=== PATIENT | male | born 1970 | race Caucasian/White ===

== ENCOUNTER → 2020-03-30 | Outpatient (REF) | payer OTHER, BC ==
[2020-03-30 17:07] LABS: MALB URINE SIEMENS 17.8 MG/L; MAU/CREAT RATIO 24.3 MCG/MG (0.0-30.0)
== END ==
LOC: M LAB REF 15:39
PROVIDERS: ATTEND Physician Assistant
DX: E11.65 Type 2 diabetes mellitus with hyperglycemia (principal)

== ENCOUNTER → 2020-04-30 | Outpatient (REF) | payer OTHER ==
[2020-04-30 18:39] LABS: ALBUMIN 4.4 GM/DL (3.2-5.2); ALT/SGPT 36 U/L (12-78); BILIRUBIN,TOTAL 1.3 MG/DL (0.2-1.0); BLOOD UREA NITROGEN 23 MG/DL (7-18); CALCIUM LEVEL 9.5 MG/DL (8.5-10.1); CARBON DIOXIDE LEVEL 31 MEQ/L (21-32); CHLORIDE LEVEL 101 MEQ/L (98-107); CREATININE FOR GFR 0.84 MG/DL (0.70-1.30); GLOMERULAR FILTRATION RATE > 60.0 (>56); GLUCOSE, FASTING 148 MG/DL (70-100); POTASSIUM SERUM 4.6 MEQ/L (3.5-5.1); SODIUM LEVEL 136 MEQ/L (136-145); TOTAL PROTEIN 7.7 GM/DL (6.4-8.2)
== END ==
LOC: M LAB REF 15:58
PROVIDERS: ATTEND Physician Assistant
DX: R17 Unspecified jaundice (principal)

== ENCOUNTER → 2020-07-03 | Outpatient (REF) | payer OTHER ==
[2020-07-03 13:26] LABS: ALBUMIN 4.4 GM/DL (3.2-5.2); ALT/SGPT 29 U/L (12-78); BILIRUBIN,TOTAL 1.2 MG/DL (0.2-1.0); BLOOD UREA NITROGEN 19 MG/DL (7-18); CALCIUM LEVEL 9.3 MG/DL (8.5-10.1); CARBON DIOXIDE LEVEL 32 MEQ/L (21-32); CHLORIDE LEVEL 105 MEQ/L (98-107); CREATININE FOR GFR 0.84 MG/DL (0.70-1.30); GLOMERULAR FILTRATION RATE > 60.0 (>56); GLUCOSE, FASTING 133 MG/DL (70-100); POTASSIUM SERUM 4.3 MEQ/L (3.5-5.1); SODIUM LEVEL 140 MEQ/L (136-145); TOTAL PROTEIN 7.8 GM/DL (6.4-8.2)
[2020-07-03 14:30] LABS: HEMOGLOBIN A1c 7.1 %
== END ==
LOC: M LAB REF 12:19
PROVIDERS: ATTEND Physician Assistant
DX: E11.65 Type 2 diabetes mellitus with hyperglycemia (principal)

== ENCOUNTER → 2020-11-02 | Outpatient (CLI) | payer OTHER ==
[~2020-11-02] MED LIST: METF10004 PO
== END ==
LOC: M LABSMTC 09:24
PROVIDERS: ATTEND Anesthesiology
DX: Z01.812 Encounter for preprocedural laboratory examination (principal)

== ENCOUNTER 2020-11-06 08:16 | Day surgery (SDC) | payer BC, OTHER ==
[~2020-11-06] VITALS: Ht 167.6 cm; Wt 80.9 kg
[~2020-11-06 08:16] MED LIST changes: +LIDOCAINE 2% 100MG/5ML SDV (FOR ANES.) As Ordered ONE; +NS 1,000 ML IV ONE; +propofoL 200 MG/20 ML VIAL As Ordered ONE
[2020-11-06 10:30] VITALS: BP 118/81
== END 2020-11-06 10:40 | disposition home or self-care (01) ==
LOC: M OPP 08:16
PROVIDERS: ATTEND Internal Medicine Gastroenterology
DX: Z12.11 Encounter for screening for malignant neoplasm of colon (principal); K64.8 Other hemorrhoids; E11.9 Type 2 diabetes mellitus without complications; E78.5 Hyperlipidemia, unspecified; E55.9 Vitamin D deficiency, unspecified; Z88.0 Allergy status to penicillin; Z79.84 Long term (current) use of oral hypoglycemic drugs; Z80.0 Family history of malignant neoplasm of digestive organs; Z83.3 Family history of diabetes mellitus

== ENCOUNTER → 2022-02-11 | Outpatient (REF) | payer OTHER ==
[~2022-02-11] MED LIST changes: -LIDOCAINE 2% 100MG/5ML SDV (FOR ANES.) As Ordered ONE; -NS 1,000 ML IV ONE; -propofoL 200 MG/20 ML VIAL As Ordered ONE
[2022-02-11 17:39] LABS: BLOOD UREA NITROGEN 22 MG/DL (7-18); CALCIUM LEVEL 9.2 MG/DL (8.5-10.1); CARBON DIOXIDE LEVEL 29 MEQ/L (21-32); CHLORIDE LEVEL 104 MEQ/L (98-107); CREATININE FOR GFR 0.77 MG/DL (0.70-1.30); GLOMERULAR FILTRATION RATE > 60.0 (>56); GLUCOSE, FASTING 121 MG/DL (70-100); POTASSIUM SERUM 4.1 MEQ/L (3.5-5.1); SODIUM LEVEL 140 MEQ/L (136-145)
[2022-02-11 21:17] LABS: HEMOGLOBIN A1c 7.5 %
== END ==
LOC: M LAB REF 16:14
PROVIDERS: ATTEND Physician Assistant
DX: E11.9 Type 2 diabetes mellitus without complications (principal)

== ENCOUNTER → 2022-06-24 | Outpatient (REF) | payer OTHER ==
[2022-06-24 19:05] LABS: HEMATOCRIT 44.1 % (42.0-52.0); HEMOGLOBIN 14.8 g/dl (13.5-17.5); MEAN CORPUSCULAR HEMOGLOBIN 30.2 pg (27.0-33.0); MEAN CORPUSCULAR HGB CONC 33.6 g/dl (32.0-36.5); PLATELET COUNT, AUTOMATED 249 10^3/uL (150-450); WHITE BLOOD COUNT 7.2 10^3/uL (4.0-10.0)
[2022-06-24 19:29] LABS: ALBUMIN 4.3 G/DL (3.2-5.2); ALKALINE PHOSPHATASE 66 U/L (46-116); ALT/SGPT 33 U/L (7.0-40); AST/SGOT 17 U/L (<34); BILIRUBIN,TOTAL 1.3 MG/DL (0.3-1.2); BLOOD UREA NITROGEN 19 MG/DL (9-23); CALCIUM LEVEL 9.5 MG/DL (8.5-10.1); CARBON DIOXIDE LEVEL 29 MMOL/L (20-31); CHLORIDE LEVEL 103 MMOL/L (98-107); CHOLESTEROL LEVEL 121 MG/DL (<200); CHOLESTEROL RISK RATIO 3.55 (<5); CREATININE FOR GFR 0.76 MG/DL (0.70-1.30); GLOMERULAR FILTRATION RATE > 60.0 (>56); GLUCOSE, FASTING 122 MG/DL (60-100); LDL CHOLESTEROL 57.4 MG/DL (<100); POTASSIUM SERUM 4.9 MMOL/L (3.5-5.1); SODIUM LEVEL 140 MMOL/L (136-145); TOTAL PROTEIN 7.3 G/DL (5.7-8.2); TRIGLYCERIDES LEVEL 148 MG/DL (<150)
[2022-06-24 19:31] LABS: TOTAL 25(OH) VITAMIN D 52.1 NG/ML (20.0-100.0)
[2022-06-24 21:28] LABS: HEMOGLOBIN A1c 7.6 % (4.0-6.0)
== END ==
LOC: M LAB REF 16:57
PROVIDERS: ATTEND Physician Assistant
DX: E55.9 Vitamin D deficiency, unspecified (principal); E11.9 Type 2 diabetes mellitus without complications

== ENCOUNTER → 2023-05-03 | Outpatient (REF) | payer OTHER ==
[2023-05-03 17:27] LABS: ALBUMIN 4.1 G/DL (3.2-5.2); ALKALINE PHOSPHATASE 70 U/L (46-116); ALT/SGPT 34 U/L (7.0-40); AST/SGOT 14 U/L (<34); BILIRUBIN,TOTAL 1.4 MG/DL (0.3-1.2); BLOOD UREA NITROGEN 20 MG/DL (9-23); CALCIUM LEVEL 9.5 MG/DL (8.5-10.1); CARBON DIOXIDE LEVEL 29 MMOL/L (20-31); CHLORIDE LEVEL 102 MMOL/L (98-107); CHOLESTEROL LEVEL 116 MG/DL (<200); CHOLESTEROL RISK RATIO 3.52 (<5); CREATININE FOR GFR 0.79 MG/DL (0.70-1.30); GLOMERULAR FILTRATION RATE > 60.0 (>56); GLUCOSE, FASTING 145 MG/DL (60-100); HDL CHOLESTEROL 32.9 MG/DL (>40); LDL CHOLESTEROL 56.7 MG/DL (<100); NON-HDL-C 83.1 MG/DL; SODIUM LEVEL 137 MMOL/L (136-145); TOTAL 25(OH) VITAMIN D 32.9 NG/ML (20.0-100.0); TOTAL PROTEIN 7.4 G/DL (5.7-8.2); TRIGLYCERIDES LEVEL 132 MG/DL (<150)
[2023-05-03 17:39] LABS: HEMOGLOBIN A1c 7.7 % (4.0-6.0)
== END ==
LOC: M LAB REF 16:31
PROVIDERS: ATTEND Physician Assistant
DX: E78.5 Hyperlipidemia, unspecified (principal); E11.9 Type 2 diabetes mellitus without complications

== ENCOUNTER → 2023-05-09 | Outpatient (REF) | payer OTHER ==
[2023-05-09 19:00] LABS: CREATININE, URINE 123.4 MG/DL; MALB URINE SIEMENS < 3.0 MG/L; MAU/CREAT RATIO 2.4 MCG/MG (0.0-30.0)
== END ==
LOC: M LAB REF 16:34
PROVIDERS: ATTEND Physician Assistant
DX: E11.9 Type 2 diabetes mellitus without complications (principal)

== ENCOUNTER → 2023-11-03 | Outpatient (REF) | payer OTHER ==
[2023-11-03 18:05] LABS: HEMOGLOBIN A1c 7.8 % (4.0-6.0)
[2023-11-03 18:11] LABS: BLOOD UREA NITROGEN 16 MG/DL (9-23); CALCIUM LEVEL 9.7 MG/DL (8.5-10.1); CARBON DIOXIDE LEVEL 27 MMOL/L (20-31); CHLORIDE LEVEL 105 MMOL/L (98-107); CREATININE FOR GFR 0.77 MG/DL (0.70-1.30); GLOMERULAR FILTRATION RATE > 60.0 (>56); GLUCOSE, FASTING 125 MG/DL (60-100); POTASSIUM SERUM 4.1 MMOL/L (3.5-5.1); SODIUM LEVEL 139 MMOL/L (136-145)
== END ==
LOC: M LAB REF 16:36
PROVIDERS: ATTEND Physician Assistant
DX: E11.9 Type 2 diabetes mellitus without complications (principal)

== ENCOUNTER → 2023-11-13 | Outpatient (REF) | payer OTHER ==
[2023-11-13 17:34] LABS: CREATININE, URINE 150.3 MG/DL; MAU/CREAT RATIO 4.6 MCG/MG (0.0-30.0)
== END ==
LOC: M LAB REF 16:28
PROVIDERS: ATTEND Physician Assistant
DX: E11.9 Type 2 diabetes mellitus without complications (principal)

== ENCOUNTER → 2024-04-30 | Outpatient (REF) | payer OTHER ==
[2024-04-30 17:01] LABS: ALBUMIN 4.3 G/DL (3.2-5.2); ALKALINE PHOSPHATASE 68 U/L (40-129); ALT/SGPT 36 U/L (7.0-40); AST/SGOT 22 U/L (<34); BILIRUBIN,TOTAL 1.2 MG/DL (0.3-1.2); BLOOD UREA NITROGEN 20 MG/DL (9-23); CALCIUM LEVEL 9.8 MG/DL (8.5-10.1); CARBON DIOXIDE LEVEL 30 MMOL/L (20-31); CHLORIDE LEVEL 105 MMOL/L (98-107); CHOLESTEROL LEVEL 116 MG/DL (<200); CHOLESTEROL RISK RATIO 2.69 (<5); CREATININE FOR GFR 0.77 MG/DL (0.70-1.30); GLOMERULAR FILTRATION RATE > 60.0 (>56); GLUCOSE, FASTING 105 MG/DL (60-100); HDL CHOLESTEROL 43.1 MG/DL (>40); LDL CHOLESTEROL 51.1 MG/DL (<100); NON-HDL-C 72.9 MG/DL; POTASSIUM SERUM 4.5 MMOL/L (3.5-5.1); SODIUM LEVEL 142 MMOL/L (136-145); TOTAL PROTEIN 7.4 G/DL (5.7-8.2); TRIGLYCERIDES LEVEL 109 MG/DL (<150)
[2024-04-30 17:03] LABS: TOTAL 25(OH) VITAMIN D 27.2 NG/ML (20.0-100.0)
[2024-04-30 18:11] LABS: HEMOGLOBIN A1c 6.7 % (4.0-6.0)
== END ==
LOC: M LAB REF 16:28
PROVIDERS: ATTEND Physician Assistant
DX: E78.5 Hyperlipidemia, unspecified (principal); E11.9 Type 2 diabetes mellitus without complications; E55.9 Vitamin D deficiency, unspecified

== ENCOUNTER → 2024-11-08 | Outpatient (REF) | payer OTHER ==
[2024-11-08 17:50] LABS: CREATININE, URINE 74.0 MG/DL; MALB URINE SIEMENS < 3.0 MG/L
[2024-11-08 18:42] LABS: ESTIMATED AVERAGE GLUCOSE 137.0 MG/DL (60-110)
== END ==
LOC: M LAB REF 16:56
PROVIDERS: ATTEND Nurse Practitioner Family
DX: E11.9 Type 2 diabetes mellitus without complications (principal)